=== PATIENT | male | born 1960 | race Caucasian/White ===

== ENCOUNTER → 2025-04-19 | Outpatient (CLI) | payer OTHER, SELFPAY ==
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
== END | disposition home or self-care (01) ==
PROVIDERS: PCP Nurse Practitioner Adult Health; Referring Provider Physician Assistant; Visit Provider Physician Assistant
DX: S57.81XA Crushing injury of right forearm, initial encounter (principal); S67.21XA Crushing injury of right hand, initial encounter; R20.2 Paresthesia of skin
CPT/HCPCS: 95886; 95910